=== PATIENT | male | born 1970 | race Two or more races ===

== ENCOUNTER 2020-06-16 08:52 | Outpatient (CLI) | payer OTHER ==
[~2020-06-16 08:52] MED LIST: COZAAR50 MG PO; LIPITOR40 MG PO
== END 2020-06-16 11:10 | disposition home or self-care (01) ==
LOC: ASH CLINIC 08:52
PROVIDERS: ATTEND Internal Medicine
DX: U07.1 COVID-19 (principal); Z20.822 Contact with and (suspected) exposure to COVID-19

== ENCOUNTER → 2022-02-05 | Outpatient (CLI) | payer OTHER | END | disposition home or self-care (01) | LOC: NUCLEAR 07:07 | PROVIDERS: ATTEND Internal Medicine Cardiovascular Disease | DX: I25.9 Chronic ischemic heart disease, unspecified (principal); Z91.018 Allergy to other foods ==

== ENCOUNTER 2022-06-24 22:59 | Emergency (ER) | payer OTHER ==
[~2022-06-24] VITALS: Ht 175.3 cm; Wt 96.2 kg
[2022-06-24] MEDS ORDERED: NORVASC10 MG (23:17)
== END 2022-06-25 05:43 | disposition home or self-care (01) ==
LOC: ER 22:59
DX: N20.1 Calculus of ureter (principal); R10.9 Unspecified abdominal pain; Z96.0 Presence of urogenital implants